=== PATIENT | male | born 1990 | race Caucasian/White ===

== ENCOUNTER 2017-05-27 17:33 | Emergency (ER) | payer SELFPAY ==
[2017-05-27] MEDS ORDERED: NORCO 5/325 MG PO ONE ×2 (17:40→18:55)
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
[2017-05-27] MEDS ORDERED: NORCO 5/325 MG ONE ×2 (17:45→18:52)
[2017-05-27 19:11] VITALS: BP 117/62; PULSE 88; O2SAT 96
--- NOTE | 2017-05-27 20:09 | XRAY ---
Indication: Pain following injury. Comparison: None 3 nonweightbearing views of the right foot demonstrates nondisplaced medial malleolar tip fracture and a cuboid accessory ossicle. No other bony, articular, or soft tissue abnormalities.
--- NOTE | 2017-05-27 20:09 | XRAY ---
Indication: Lateral pain following injury. Comparison: None 3 views of the right ankle demonstrates nondisplaced medial malleolar tip acute fracture with soft tissue swelling. Elsewhere tiny posterior heel spur and small lateral malleolar tip well-circumscribed ossification either developmental versus old injury.
== END 2017-05-27 19:05 | disposition home or self-care (01) ==
LOC: ED 17:33
PROC: 2W3QX1Z Immobilization of Right Lower Leg using Splint (ICD-10-PCS; principal; 2017-05-27)
DX: S82.891A Other fracture of right lower leg, initial encounter for closed fracture (principal); V86.95XA Unspecified occupant of 3- or 4- wheeled all-terrain vehicle (ATV) injured in nontraffic accident, initial encounter
CPT/HCPCS: 29515; 73610; 73630; 99283; A9270-GY

== ENCOUNTER 2018-04-23 06:04 | Emergency (ER) | payer OTHER ==
[2018-04-23] MEDS ORDERED: solu-MEDROL 125 MG IV ONE (06:09)
[2018-04-23] MEDS ORDERED: DUONEB 0.5-3 MG/3 ml Neb IH ONE ×2 (06:09→06:31)
[2018-04-23 06:15] VITALS: BP 124/62
[2018-04-23] MEDS ORDERED: solu-MEDROL 125 MG ONE (06:17)
--- NOTE | 2018-04-23 06:18 | ERPHSYRPT ---
- History of Present Illness Time Seen by Provider: 04/23/18 06:12 Source: patient Exam Limitations: no limitations Physician History: 27-year-old white male with history of asthma arrives with complaint of shortness of breath since last night. Patient states that he was seen yesterday [facility] secondary to the same complaint he was given a prescription for an inhaler and antibiotics but he did not fill them because he stated that he did not have any money. He states that he is short of breath wheezing he has not had any fevers no nausea no vomiting. Past medical history includes asthma depression and anger issues. Past surgical history is negative. Social history is positive for tobacco use patient denies alcohol or illicit drug use. Timing/Duration: yesterday Activities at Onset: none Severity of Dyspnea-Max: moderate Severity of Dyspnea-Current: moderate Possible Cause: occasional episodes (patient seen at [facility] for the same did not fill his prescriptions.) Modifying Factors: Improves With: nothing Associated Symptoms: constant, wheezing, No intermittent, No anxiety, No cough, No chest pain/discomfort, No edema, No fever, No insomnia, No loss of appetite, No lightheadedness, No weakness, No ankle swelling, No chills, No hemoptysis, No calf pain, No dizziness, No heaviness, No heart racing, No lightheadedness, No leg swelling, No muscle spasms feet, No muscle spasms hands, No painful breathing, No productive cough, No sweating, No tightness, No tingling face International travel in last 2 weeks: No Allergies/Adverse Reactions: No Known Drug Allergies Allergy (Verified 05/27/17 17:46) Home Medications: No Reportable Medications [No Reported Medications] 05/27/17 [History] Hx Tetanus, Diphtheria Vaccination/Date Given: Yes Hx Influenza Vaccination/Date Given: No Hx Pneumococcal Vaccination/Date Given: Yes - Review of Systems Constitutional: No Fever, No Chills Eyes: No Symptoms Ears, Nose, & Throat: No Symptoms Respiratory: Dyspnea, Wheezing Cardiac: No Chest Pain, No Edema, No Syncope Abdominal/Gastrointestinal: No Abdominal Pain, No Nausea, No Vomiting, No Diarrhea Genitourinary Symptoms: No Dysuria Musculoskeletal: No Back Pain, No Neck Pain Skin: No Rash Neurological: No Dizziness, No Focal Weakness, No Sensory Changes Psychological: No Symptoms Endocrine: No Symptoms All Other Systems: Reviewed and Negative - Past Medical History Pertinent Past Medical History: Yes Neurological History: No Pertinent History ENT History: No Pertinent History Cardiac History: No Pertinent History Respiratory History: Asthma Endocrine Medical History: No Pertinent History Musculoskeletal History: No Pertinent History GI Medical History: No Pertinent History History: No Pertinent History Psycho-Social History: Depression Male Reproductive Disorders: No Pertinent History Other Medical History: anger issues - Past Surgical History Past Surgical History: No - Social History Smoking Status: Current some day smoker How long have you smoked: 10 YEARS Exposure to second hand smoke: Yes Drug Use: none Patient Lives Alone: No - Nursing Vital Signs Nursing Vital Signs: Initial Vital Signs Temperature 98.3 F 04/23/18 06:08 Pulse Rate 87 04/23/18 06:08 Respiratory Rate 22 04/23/18 06:08 Blood Pressure 124/62 04/23/18 06:08 O2 Sat by Pulse Oximetry 95 04/23/18 06:08 Pain Scale Pain Intensity 2 - Physical Exam General Appearance: mild distress Eye Exam: PERRL/EOMI Ears, Nose, Throat Exam: hearing grossly normal, normal ENT inspection, normal pharynx, No abnormal TM (R), No abnormal TM (L), No sinus pain/drainage, No hearing decreased, No nasal congestion, No pharyngeal erythema, No tonsillar exudate, No tonsillar swelling Neck Exam: normal inspection, non-tender, supple Respiratory Exam: airway intact, diminished breath sounds, No chest tenderness, No lungs clear, No respiratory distress, No accessory muscle use, No prolonged expirations, No crackles/rales, No rhonchi, No wheezing, No stridor, No pleural rub Cardiovascular/Chest Exam: normal heart sounds, regular rate/rhythm, normal peripheral pulses, No murmur Abdominal/Gastrointestinal Exam: soft, No tenderness, No distention, No mass Extremity Exam: non-tender, normal range of motion, normal inspection, no calf tenderness, no pedal edema Neurologic Exam: alert, oriented x 3, cooperative, fly finisher II-XII nml as tested, sensation nml, No motor deficits Skin Exam: normal color, warm, No dry SpO2 Interpretation: normal (97%) Oxygen Delivery: Room Air - Course Nursing assessment & vital signs reviewed: Yes EKG Interpreted by Me: RATE (75 bpm), NORMAL AXIS, Other (EKG, sinus arrhythmia , 75 bpm, normal axis, no acute ST or t wave changes, normal EKG) - Radiology Exams Chest X-ray Interpretation: Interpreted by me, Negative (no acute disease process) Ordered Tests: Active Orders 24 hr Category Date Time Status EKG-ER Only STAT Care 04/23/18 06:09 Active IV Insertion STAT Care 04/23/18 06:09 Active Pulse Oximetry (ED) STAT Care 04/23/18 06:11 Active CHEST 1 VIEW (PORTABLE) Stat Exams 04/23/18 06:20 Taken Respiratory MDI STAT RT 04/23/18 06:40 Active Respiratory Therapy Assessment DAILY RT 04/23/18 06:37 Active Medication Summary Generic Name Dose Route Start Last Admin Trade Name Freq PRN Reason Stop Dose Admin Albuterol Sulfate 2 puff 04/23/18 06:39 Proventil Common Canister IH 05/23/18 06:38 Q4-6HPRN PRN shortness of breath, wheezing Discontinued Medications Generic Name Dose Route Start Last Admin Trade Name Freq PRN Reason Stop Dose Admin Albuterol/Ipratropium 3 ml 04/23/18 06:09 04/23/18 06:36 Duoneb 0.5-3 Mg/3 Ml Neb IH 04/23/18 06:10 3 ml STAT ONE Administration Albuterol/Ipratropium Confirm 04/23/18 06:31 Duoneb 0.5-3 Mg/3 Ml Neb Administered 04/23/18 06:32 Dose 3 ml IH .STK-MED ONE Methylprednisolone Sodium Succinate 125 mg 04/23/18 06:09 04/23/18 06:29 Solu-Medrol 125 Mg IV 04/23/18 06:10 125 mg STAT ONE Administration Methylprednisolone Sodium Succinate Confirm 04/23/18 06:17 Solu-Medrol 125 Mg Administered 04/23/18 06:18 Dose 125 mg .ROUTE .STK-MED ONE - Progress Progress: improved Air Movement: fair Progress Note: 04/23/18 06:16 This is a 27-year-old white male with history of asthma, depression, anger issues who smokes. He arrives with complaint of shortness of breath since yesterday he states he's been wheezing. He apparently was seen yesterday at [facility] he was given a prescription for antibiotics and inhaler however he states he did not fill these. On arrival patient does have some decreased breath sounds. I have ordered an EKG, DuoNeb treatment, and Solu-Medrol 125 mg IV. I've asked the nurses to obtain records from the patient's last ER visit at [place] yesterday. Patient does appear to be stable pulse ox is 97% on room air 04/23/18 06:41 Awaiting a chest x-ray on this patient he is given an albuterol treatment and Solu-Medrol. Patient apparently cannot afford an inhaler I've asked respiratory to provide him one to be used every 2 puffs every 4-6 hours as needed. Patient was given a prescription for Keflex at [place] yesterday I will find out if he kept that prescription, 04/23/18 06:47 Patient states his Keflex was called out to [facility] in [place]. He states he believes he will be able to pick this up I will also give him a prescription for tapering dose of prednisone. I have told the patient he will need to pay for these medications. I have asked respiratory/pharmacy to provide the patient with an albuterol inhaler. Patient is advised to quit smoking. - Departure Time of Disposition: 06:48 Departure Disposition: Home Clinical Impression: Shortness of breath Asthma with exacerbation Qualifiers: Asthma severity: moderate Asthma persistence: unspecified Qualified Code(s): J45.901 - Unspecified asthma with (acute) exacerbation Condition: Fair Critical Care Time: No Referrals: DOCTOR,NO FAMILY [Primary Care Provider] - Additional Instructions: Return home. Plenty of fluids. Albuterol inhaler 2 puffs every 4-6 hours as needed for wheezing or shortness of breath. Fill your prescription for Keflex which he received yesterday. Tapering dose of penicillin as prescribed. Stop smoking. Follow-up with your family doctor.(list) Return for acute distress or for severe symptoms.
[2018-04-23 06:38] VITALS: PULSE 71; O2SAT 95
[2018-04-23] MEDS ORDERED: PROVENTIL COMMON CANISTER IH PRN (06:39)
[2018-04-23] MEDS ORDERED: Ventolin Hfa MDI IH ONE (06:48)
--- NOTE | 2018-04-23 09:12 | XRAY ---
Indication: Short of breath. Asthma. Comparison: None Portable chest demonstrates normal heart and lungs. 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
== END 2018-04-23 06:58 | disposition home or self-care (01) ==
LOC: ED 06:04
DX: R06.02 Shortness of breath (principal); J45.909 Unspecified asthma, uncomplicated; F32.9 Major depressive disorder, single episode, unspecified; Z79.4 Long term (current) use of insulin
CPT/HCPCS: 36000; 71045; 93005; 94640; 96374; 99284; J2930; A9270-GY

== ENCOUNTER 2020-01-15 17:34 | Emergency (ER) | payer MEDICAID, OTHER ==
--- NOTE | 2020-01-15 18:04 | ERPHSYRPT ---
- History of Present Illness Source: patient Exam Limitations: no limitations Patient Subjective Stated Complaint: pt co pain to left knee for 2 days after tripping and falling down 4 stairs, landed on left knee, Triage Nursing Assessment: pt alert, resp easy has face mask in place, skin w/d/p.pain to knee, no swelling or bruising noted Physician History: 29 yo wm fell and hurt his L knee 2 days ago. Pt denies previous/other injury. Pain is 7/10 and worse w movement. Method of Injury: fell Occurred: days ago (2) Quality: constant Severity of Pain-Max: moderate Severity of Pain-Current: moderate Lower Extremities Pain: knee: left Modifying Factors: Improves With: movement Associated Symptoms: none Allergies/Adverse Reactions: No Known Drug Allergies Allergy (Verified 01/15/20 17:57) Hx Tetanus, Diphtheria Vaccination/Date Given: Yes Hx Influenza Vaccination/Date Given: No Hx Pneumococcal Vaccination/Date Given: No Immunizations Up to Date: Yes Travel Risk - International Travel Have you traveled outside of the country in past 3 weeks: No - Coronavirus Screening Are you exhibiting any of the following symptoms?: No Close contact with a COVID-19 positive Pt in past 14-21 Days: No - Review of Systems Constitutional: No Symptoms Eyes: No Symptoms Ears, Nose, & Throat: No Symptoms Respiratory: No Symptoms Cardiac: No Symptoms Abdominal/Gastrointestinal: No Symptoms Genitourinary Symptoms: No Symptoms Skin: No Symptoms Neurological: No Symptoms Psychological: No Symptoms Endocrine: No Symptoms Hematologic/Lymphatic: No Symptoms Immunological/Allergic: No Symptoms - Past Medical History Pertinent Past Medical History: Yes Neurological History: No Pertinent History ENT History: No Pertinent History Cardiac History: No Pertinent History Respiratory History: Asthma Endocrine Medical History: No Pertinent History Musculoskeletal History: No Pertinent History GI Medical History: No Pertinent History History: No Pertinent History Psycho-Social History: Depression Male Reproductive Disorders: No Pertinent History Other Medical History: anger issues - Past Surgical History Past Surgical History: No - Social History Smoking Status: Current every day smoker How long have you smoked: 10 YEARS Exposure to second hand smoke: Yes Drug Use: none Patient Lives Alone: No Significant Family History: no pertinent family hx - Nursing Vital Signs Nursing Vital Signs: Initial Vital Signs Temperature 98.4 F 01/15/20 17:51 Pulse Rate 58 L 01/15/20 17:51 Respiratory Rate 18 01/15/20 17:51 Blood Pressure 119/61 01/15/20 17:51 O2 Sat by Pulse Oximetry 96 01/15/20 17:51 Pain Scale Pain Intensity 7 - Physical Exam General Appearance: no apparent distress Eyes, Ears, Nose, Throat Exam: normal ENT inspection Neck Exam: normal inspection, non-tender, full range of motion Cardiovascular/Respiratory Exam: chest non-tender, normal breath sounds, regular rate/rhythm, heart sounds normal, no respiratory distress Gastrointestinal/Abdominal Exam: non-tender, soft, No tenderness Back Exam: normal inspection, normal range of motion, No vertebral tenderness Hips Exam: bilateral: non-tender, normal inspection, normal range of motion, no evidence of injury Legs Exam: bilateral leg: non-tender, normal inspection, normal range of motion, no evidence of injury Knees Exam: left knee: other (L knee w mild edema and pre-patellar ttp/no instability/good pedal pulse, distal sensation, and capillary return) Ankle Exam: bilateral ankle: non-tender, normal inspection, normal range of motion, no evidence of injury Foot Exam: bilateral foot: non-tender, normal inspection, normal range of motion, no evidence of injury Neuro/Tendon Exam: normal sensation, normal motor functions, normal tendon functions, responds to pain, no evidence tendon injury Mental Status Exam: alert, oriented x 3, cooperative Skin Exam: normal color, warm, dry SpO2 Interpretation: normal SpO2: 96 O2 Delivery: Room Air - Course Nursing assessment & vital signs reviewed: Yes - Radiology Exams Knee X-ray Interpretation: Interpreted by me (L knee wo fx) Ordered Tests: Active Orders 24 hr Category Date Time Status Armando Bandage Application -[facility] STAT Care 01/15/20 18:30 Completed KNEE (3 VIEWS) Stat Exams 01/15/20 18:17 Taken - Progress Progress: unchanged Progress Note: 01/15/20 18:04 Pt refused pain meds after exam 01/15/20 18:30 Armando wrap per nurse/NVI Pt request work excuse 01/15/20 18:34 Pt refused all pain meds during stay Counseled pt/family regarding: diagnosis, rad results - Departure Departure Disposition: Home Clinical Impression: Contusion of knee, left Condition: Stable Critical Care Time: No Referrals: DOCTOR,NO FAMILY [Primary Care Provider] - Instructions: Knee Sprain (DC), Knee Pain (DC) Additional Instructions: Armando wrap for 3-4 days Lodine as needed for pain Follow up with family md for continued pain Activity as tolerated Forms: Work/School Release Form Prescriptions: Etodolac 400 mg [Lodine 400 mg] 400 mg PO BIDPRN PRN #10 tablet PRN Reason: Pain
[2020-01-15 19:01] VITALS: BP 119/63; PULSE 74
[2020-01-15 19:08] VITALS: O2SAT 96
--- NOTE | 2020-01-15 19:36 | XRAY ---
Exam: 3 views the right knee from 01/15/2020. Comparison: None. Indication: 29-year-old male fell going down steps 2 days ago, landed on knee, anterior and lateral left knee pain since then. Findings: AP, oblique, and lateral radiographs of the left knee were obtained. I see no acute left knee fracture, dislocation, or joint effusion. Both the patellofemoral joint as well as the femoral tibial joint appear well-maintained and display smooth articular margins. No intra-articular or periarticular soft tissue calcifications are seen. No other focal bone lesion is evident. No radiopaque soft tissue foreign body is seen. Impression: 1. No acute left knee fracture, dislocation, or joint effusion is seen.
== END 2020-01-15 19:02 | disposition home or self-care (01) ==
LOC: ED 17:34
DX: S80.01XA Contusion of right knee, initial encounter (principal); W17.89XA Other fall from one level to another, initial encounter; Y93.89 Activity, other specified; Y92.89 Other specified places as the place of occurrence of the external cause
CPT/HCPCS: 73562; 99283

== ENCOUNTER 2020-10-17 20:16 | Emergency (ER) | payer MEDICAID, OTHER ==
--- NOTE | 2020-10-17 20:25 | ERPHSYRPT ---
- History of Present Illness Time Seen by Provider: 10/17/20 20:21 Source: patient Exam Limitations: no limitations Physician History: Patient is a 30-year-old white male who presents with a complaint of chest pain and shortness of breath. This is actually been going on for 2 months as far as the chest pain goes the shortness of breath been getting worse he has been dizzy he has had some fever on and off he has a history of asthma. His cardiac risk factors are positive family history positive for smoking positive for hypertension negative for cholesterol abnormalities or diabetes. Timing/Duration: week(s) (8) Severity: moderate Modifying Factors: Improves With: movement Associated Symptoms: shortness of breath, cough, chest pain, fever Allergies/Adverse Reactions: No Known Drug Allergies Allergy (Verified 10/17/20 20:19) Hx Tetanus, Diphtheria Vaccination/Date Given: Yes Hx Influenza Vaccination/Date Given: No Hx Pneumococcal Vaccination/Date Given: No - Review of Systems Constitutional: Fever, No Chills Eyes: No Symptoms Ears, Nose, & Throat: No Symptoms Respiratory: Cough, Dyspnea, Wheezing Cardiac: Chest Pain, No Edema, No Syncope Abdominal/Gastrointestinal: No Abdominal Pain, No Nausea, No Vomiting, No Diarrhea Genitourinary Symptoms: No Dysuria Musculoskeletal: No Back Pain, No Neck Pain Skin: No Rash Neurological: No Dizziness, No Focal Weakness, No Sensory Changes Psychological: No Symptoms Endocrine: No Symptoms All Other Systems: Reviewed and Negative - Past Medical History Pertinent Past Medical History: Yes Neurological History: No Pertinent History ENT History: No Pertinent History Cardiac History: No Pertinent History Respiratory History: Asthma Endocrine Medical History: No Pertinent History Musculoskeletal History: No Pertinent History GI Medical History: No Pertinent History History: No Pertinent History Psycho-Social History: Depression Male Reproductive Disorders: No Pertinent History Other Medical History: anger issues - Past Surgical History Past Surgical History: No - Social History Smoking Status: Current every day smoker How long have you smoked: 10 YEARS Exposure to second hand smoke: Yes Drug Use: none Patient Lives Alone: No Significant Family History: no pertinent family hx - Nursing Vital Signs Nursing Vital Signs: Initial Vital Signs Temperature 98.5 F 10/17/20 20:21 Pulse Rate 108 H 10/17/20 20:21 Respiratory Rate 22 10/17/20 20:21 Blood Pressure 153/88 10/17/20 20:21 O2 Sat by Pulse Oximetry 95 10/17/20 20:21 Pain Scale Pain Intensity 6 - Physical Exam General Appearance: mild distress, alert Eye Exam: PERRL/EOMI, eyes nml inspection Ears, Nose, Throat Exam: normal ENT inspection, TMs normal, pharynx normal, moist mucous membranes Neck Exam: normal inspection, non-tender, supple, full range of motion Respiratory Exam: lungs clear, crackles/rales, rhonchi, wheezing, No respiratory distress Cardiovascular Exam: regular rate/rhythm, normal heart sounds, normal peripheral pulses Gastrointestinal/Abdomen Exam: soft, normal bowel sounds, No tenderness, No mass Back Exam: normal inspection, normal range of motion, No CVA tenderness, No vertebral tenderness Extremity Exam: normal inspection, normal range of motion, pelvis stable Neurologic Exam: alert, oriented x 3, cooperative, normal mood/affect, nml cerebellar function, nml station & gait, sensation nml, No motor deficits Skin Exam: normal color, warm, dry, No rash Lymphatic Exam: No adenopathy SpO2 Interpretation: normal O2 Delivery: Room Air - Course Nursing assessment & vital signs reviewed: Yes Ordered Tests: Active Orders 24 hr Category Date Time Status Orthopedic Tech STAT Care 10/17/20 20:33 Active EKG-ER Only STAT Care 10/17/20 20:33 Active IV Insertion STAT Care 10/17/20 20:33 Active CHEST 1 VIEW (PORTABLE) Stat Exams 10/17/20 20:33 Taken CBC W DIFF Stat Lab 10/17/20 19:50 Completed CMP Stat Lab 10/17/20 19:50 Completed D-DIMER QUANTITATIVE Stat Lab 10/17/20 19:50 Completed NT PRO BNP Stat Lab 10/17/20 19:50 Completed PROTIME WITH INR Stat Lab 10/17/20 19:50 Completed TROPONIN Q3H Lab 10/17/20 19:50 Completed TROPONIN Q3H Lab 10/17/20 23:45 Ordered TROPONIN Q3H Lab 10/18/20 02:45 Ordered TROPONIN Q3H Lab 10/18/20 05:45 Ordered TROPONIN Q3H Lab 10/18/20 08:45 Ordered Respiratory Therapy Assessment DAILY RT 10/17/20 20:36 Active Medication Summary Generic Name Dose Route Start Last Admin Trade Name Freq PRN Reason Stop Dose Admin Albuterol Sulfate 2.5 mg 10/17/20 22:00 Proventil 2.5 Mg/3 Ml Neb IH 11/16/20 21:59 Q4H LUCILA Ceftriaxone Sodium/Dextrose 1 g in 50 mls @ 100 mls/hr 10/17/20 22:02 Rocephin 1 Gm-D5w 50 Ml Bag IV 10/17/20 22:31 STAT STA Discontinued Medications Generic Name Dose Route Start Last Admin Trade Name Thierry PRN Reason Stop Dose Admin Albuterol/Ipratropium 3 ml 10/17/20 20:32 10/17/20 20:42 Duoneb 0.5-3 Mg/3 Ml Neb IH 10/17/20 20:33 3 ml STAT ONE Administration Albuterol/Ipratropium Confirm 10/17/20 20:41 Duoneb 0.5-3 Mg/3 Ml Neb Administered 10/17/20 20:42 Dose 3 ml IH .STK-MED ONE Sodium Chloride 1,000 mls @ 999 mls/hr 10/17/20 20:33 10/17/20 20:42 Sodium Chloride 0.9% 1000 Ml IV 10/17/20 21:33 999 mls/hr .Q1H1M STA Administration Sodium Chloride Confirm 10/17/20 20:38 Sodium Chloride 0.9% 1000 Ml Administered 10/17/20 20:39 Dose 1,000 mls @ ud .ROUTE .STK-MED ONE Methylprednisolone Sodium Succinate 125 mg 10/17/20 20:32 10/17/20 20:43 Solu-Medrol 125 Mg IV 10/17/20 20:33 125 mg STAT ONE Administration Methylprednisolone Sodium Succinate Confirm 10/17/20 20:38 Solu-Medrol 125 Mg Administered 10/17/20 20:39 Dose 125 mg .ROUTE .STK-MED ONE Lab/Rad Data: Laboratory Result Diagrams 10/17/20 19:50 10/17/20 19:50 Laboratory Results 10/17/20 10/17/20 10/17/20 Range/Units 19:50 19:50 19:50 WBC (4.0-10.5) K/mm3 RBC (4.1-5.6) M/mm3 Hgb (12.5-18.0) gm/dl Hct (42-50) % MCV (78-100) fl MCH (26-32) pg MCHC (32-36) g/dl RDW (11.5-14.0) % Plt Count (150-450) K/mm3 MPV (7.5-11.0) fl Gran % (36.0-66.0) % Eos # (Auto) (0-0.5) Absolute Lymphs (auto) (1.0-4.6) Absolute Monos (auto) (0.0-1.3) Lymphocytes % (24.0-44.0) % Monocytes % (0.0-12.0) % Eosinophils % (0.00-5.0) % Basophils % (0.0-0.4) % Absolute Granulocytes (1.4-6.9) Basophils # (0-0.4) PT 13.5 H (8.83-12.87) SECONDS INR 1.19 (0.8-3.0) D-Dimer < 215 L (215-500) ng/mL Sodium 136 L (137-145) mmol/L Potassium 3.9 (3.5-5.1) mmol/L Chloride 101 (98-107) mmol/L Carbon Dioxide 24 (22-30) mmol/L Anion Gap 13.8 (5-15) MEQ/L BUN 14 (9-20) mg/dL Creatinine 0.92 (0.66-1.25) mg/dL Estimated GFR > 60.0 ML/MIN Glucose 97 (74-106) mg/dL Calcium 9.7 (8.4-10.2) mg/dL Total Bilirubin 0.40 (0.2-1.3) mg/dL AST 28 (17-59) U/L ALT 26 (0-50) U/L Alkaline Phosphatase 30 L (38-126) U/L Troponin I < 0.012 (0.000-0.034) ng/mL NT-Pro-B Natriuret Pep < 11.1 (0-450) pg/mL Serum Total Protein 8.3 H (6.3-8.2) g/dL Albumin 4.5 (3.5-5.0) g/dL 10/17/20 Range/Units 19:50 WBC 10.4 (4.0-10.5) K/mm3 RBC 5.30 (4.1-5.6) M/mm3 Hgb 16.4 (12.5-18.0) gm/dl Hct 48.6 (42-50) % MCV 91.7 (78-100) fl MCH 30.9 (26-32) pg MCHC 33.7 (32-36) g/dl RDW 13.0 (11.5-14.0) % Plt Count 325 (150-450) K/mm3 MPV 9.6 (7.5-11.0) fl Gran % 58.6 (36.0-66.0) % Eos # (Auto) 0.45 (0-0.5) Absolute Lymphs (auto) 2.92 (1.0-4.6) Absolute Monos (auto) 0.89 (0.0-1.3) Lymphocytes % 28.1 (24.0-44.0) % Monocytes % 8.6 (0.0-12.0) % Eosinophils % 4.3 (0.00-5.0) % Basophils % 0.4 (0.0-0.4) % Absolute Granulocytes 6.09 (1.4-6.9) Basophils # 0.04 (0-0.4) PT (8.83-12.87) SECONDS INR (0.8-3.0) D-Dimer (215-500) ng/mL Sodium (137-145) mmol/L Potassium (3.5-5.1) mmol/L Chloride (98-107) mmol/L Carbon Dioxide (22-30) mmol/L Anion Gap (5-15) MEQ/L BUN (9-20) mg/dL Creatinine (0.66-1.25) mg/dL Estimated GFR ML/MIN Glucose (74-106) mg/dL Calcium (8.4-10.2) mg/dL Total Bilirubin (0.2-1.3) mg/dL AST (17-59) U/L ALT (0-50) U/L Alkaline Phosphatase (38-126) U/L Troponin I (0.000-0.034) ng/mL NT-Pro-B Natriuret Pep (0-450) pg/mL Serum Total Protein (6.3-8.2) g/dL Albumin (3.5-5.0) g/dL - Progress Progress: improved - Departure Departure Disposition: Home Clinical Impression: Asthma with exacerbation Condition: Stable Critical Care Time: No Referrals: DOCTOR,NO FAMILY [Primary Care Provider] - Instructions: Asthma, Adult (DC) Forms: Work/School Release Form Prescriptions: Prednisone 10 mg [Deltasone 10 mg] 10 mg PO TID 5 Days #15 tablet Cephalexin Mh 500 mg [Keflex 500 mg] 500 mg PO TID #21 capsule Albuterol 2.5 mg/3 ml Neb [Proventil 2.5 mg/3 ml Neb] 2.5 mg IH Q6H 13 Days #50 neb Albuterol 8 gm Mdi Hfa [Ventolin Hfa MDI] 8 gm IH Q4H #1 [email or web address]
[2020-10-17] MEDS ORDERED: DUONEB 0.5-3 MG/3 ml Neb IH ONE ×2 (20:32→20:41)
[2020-10-17] MEDS ORDERED: solu-MEDROL 125 MG IV ONE (20:32)
[2020-10-17] MEDS ORDERED: Sodium Chloride 0.9% 1000 ML 1,000 ML IV STA (20:33)
[2020-10-17] MEDS ORDERED: Sodium Chloride 0.9% 1000 ML 1,000 ML ONE (20:38)
[2020-10-17] MEDS ORDERED: solu-MEDROL 125 MG ONE (20:38)
[2020-10-17 21:11] LABS: Absolute Neutrophil Ct (ANC) 6.09 (1.4-6.9); BASOPHIL % 0.4 % (0.0-0.4); Basophil (Absolute #) 0.04 (0-0.4); Eosinophil % 4.3 % (0.00-5.0); Eosinophil (Absolute #) 0.45 (0-0.5); Hematocrit 48.6 % (42-50); Hemoglobin 16.4 gm/dl (12.5-18.0); Lymphocyte (Absolute #) 2.92 (1.0-4.6); Lymphocytes % 28.1 % (24.0-44.0); Mean Cell Volume 91.7 fl (78-100); Mean Corpuscular Hemoglobin 30.9 pg (26-32); Mean Corpuscular Hgb Concent. 33.7 g/dl (32-36); Mean Platelet Volume 9.6 fl (7.5-11.0); Monocyte (Absolute #) 0.89 (0.0-1.3); Monocytes % 8.6 % (0.0-12.0); Neutrophil % 58.6 % (36.0-66.0); Platelet Count 325 K/mm3 (150-450); White Blood Count 10.4 K/mm3 (4.0-10.5)
[2020-10-17 21:28] LABS: INR 1.19 (0.8-3.0); PROTIME 13.5 SECONDS (8.83-12.87)
[2020-10-17 21:30] LABS: ALBUMIN 4.5 g/dL (3.5-5.0); ALKALINE PHOSPHATASE 30 U/L (38-126); ANION GAP 13.8 MEQ/L (5-15); BLOOD UREA NITROGEN 14 mg/dL (9-20); CHLORIDE 101 mmol/L (98-107); Calcium 9.7 mg/dL (8.4-10.2); Carbon Dioxide 24 mmol/L (22-30); Creatinine 1 0.92 mg/dL (0.66-1.25); EST GLOMERULAR FILTRATION RATE > 60.0 ML/MIN; Glucose 97 mg/dL (74-106); NT PRO BNP < 11.1 pg/mL (0-450); Potassium 3.9 mmol/L (3.5-5.1); SGOT/AST 28 U/L (17-59); SGPT/ALT 26 U/L (0-50); SODIUM 136 mmol/L (137-145); Total Protein 8.3 g/dL (6.3-8.2)
[2020-10-17 21:46] LABS: D-DIMER QUANTITATIVE < 215 ng/mL (215-500)
[2020-10-17] MEDS ORDERED: ROCEPHIN 1 Gm-D5w 50 ml Bag** 1 G/50 ML IVPB IV STA (22:02)
[2020-10-17] MEDS ORDERED: ROCEPHIN 1 Gm-D5w 50 ml Bag** 1 G/50 ML IVPB IV ONE (22:05)
[2020-10-17 22:16] VITALS: BP 136/80; PULSE 88
[2020-10-17] MEDS ORDERED: PROVENTIL 2.5 MG/3 ML NEB IH ONE (22:24)
[2020-10-17] MEDS: PROVENTIL 2.5 MG/3 ML NEB IH SCH (22:26)
[2020-10-17 22:44] VITALS: O2SAT 94
--- NOTE | 2020-10-18 20:55 | XRAY ---
Exam: AP upright portable chest film from 10/17/2020. Comparison: AP upright portable chest film from 04/23/2018. Indication: Shortness of breath. Findings: The transverse heart size appears within normal limits. The grzegorz and mediastinal structures appear intact. The lungs are adequately inflated. No air space infiltrates, vascular congestion, pneumothorax, or pleural effusion is seen. I again see an old fracture deformity of the posterior medial aspect of the left third rib. 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 This is unchanged. No acute osseous process is seen. Impression: 1. No acute cardiopulmonary process is seen, no change from 04/23/2018.
== END 2020-10-17 22:45 | disposition home or self-care (01) ==
LOC: ED 20:16
DX: J45.909 Unspecified asthma, uncomplicated (principal)
CPT/HCPCS: 36000; 36415; 71045; 80053; 83880; 84484; 85025; 85379; 85610; 93005; 93041; 94640; 96365; 96374; 99284; J0696; J2930; J7609; A9270-GY

== ENCOUNTER 2021-01-02 10:45 | Emergency (ER) | payer MEDICAID ==
[2021-01-02] MEDS ORDERED: solu-MEDROL 125 MG, Sterile H2O 10 ml 2 ML IV ONE ×2 (11:08)
[2021-01-02] MEDS ORDERED: DUONEB 0.5-3 MG/3 ml Neb IH ONE ×2 (11:08→11:19)
[2021-01-02 11:13] VITALS: O2SAT 98
--- NOTE | 2021-01-02 11:13 | ERPHSYRPT ---
- History of Present Illness Time Seen by Provider: 01/02/21 10:55 Source: patient Exam Limitations: no limitations Patient Subjective Stated Complaint: pt here for sob for 2 days now, no fever, cough Triage Nursing Assessment: pt alert, walked in, resp easy, face mask in place,has cough. Physician History: 30 years old male with history of asthma, tobacco abuse, out of his inhaler for 1 week presented to the ER with increasing wheezing with shortness of breath for 2 days. More with activity and better with resting. Feeling of tightness in the chest. Denies any cough fever or chills. No chest pain. No palpitations. Symptoms are similar to last episodes whenever he has a asthma flareup. Timing/Duration: day(s) (2), gradual onset, worse Activities at Onset: activity Severity of Dyspnea-Max: moderate Severity of Dyspnea-Current: moderate Possible Cause: occasional episodes Modifying Factors: Improves With: albuterol nebulizer Associated Symptoms: wheezing, tightness, No chest pain/discomfort, No loss of appetite, No heart racing, No painful breathing, No productive cough, No sweating Allergies/Adverse Reactions: No Known Drug Allergies Allergy (Verified 01/02/21 10:52) Hx Tetanus, Diphtheria Vaccination/Date Given: Yes Hx Influenza Vaccination/Date Given: No Hx Pneumococcal Vaccination/Date Given: No Immunizations Up to Date: Yes Travel Risk - International Travel Have you traveled outside of the country in past 3 weeks: No - Coronavirus Screening Are you exhibiting any of the following symptoms?: Yes Symptoms: Cough: New Onset, Shortness of Breath Close contact with a COVID-19 positive Pt in past 14-21 Days: No - Vaccine Status Have you recieved a Covid-19 vaccination: No - Review of Systems Constitutional: No Symptoms Eyes: No Symptoms Ears, Nose, & Throat: No Symptoms Respiratory: Wheezing Cardiac: No Symptoms Abdominal/Gastrointestinal: No Symptoms Genitourinary Symptoms: No Symptoms Musculoskeletal: No Symptoms Skin: No Symptoms Neurological: No Symptoms Psychological: No Symptoms Endocrine: No Symptoms Hematologic/Lymphatic: No Symptoms Immunological/Allergic: No Symptoms - Past Medical History Pertinent Past Medical History: Yes Neurological History: No Pertinent History ENT History: No Pertinent History Cardiac History: No Pertinent History Respiratory History: Asthma, COPD Endocrine Medical History: No Pertinent History Musculoskeletal History: No Pertinent History GI Medical History: No Pertinent History History: No Pertinent History Psycho-Social History: Depression Male Reproductive Disorders: No Pertinent History Other Medical History: anger issues - Past Surgical History Past Surgical History: No Neuro Surgical History: No Pertinent History Cardiac: No Pertinent History Respiratory: No Pertinent History Gastrointestinal: No Pertinent History Genitourinary: No Pertinent History Musculoskeletal: No Pertinent History Male Surgical History: No Pertinent History - Social History Smoking Status: Current every day smoker How long have you smoked: 10 YEARS Exposure to second hand smoke: Yes Drug Use: none Patient Lives Alone: Yes Significant Family History: no pertinent family hx - Nursing Vital Signs Nursing Vital Signs: Initial Vital Signs Pulse Rate 55 L 01/02/21 11:25 Respiratory Rate 18 01/02/21 11:25 O2 Sat by Pulse Oximetry 98 01/02/21 11:25 Pain Scale Pain Intensity 0 - Physical Exam General Appearance: no apparent distress, alert Eye Exam: PERRL/EOMI, eyes nml inspection Ears, Nose, Throat Exam: hearing grossly normal, normal pharynx, nasal congestion, pharyngeal erythema Neck Exam: non-tender, supple, full range of motion, Brudzinski Respiratory Exam: wheezing, No chest tenderness, No accessory muscle use Cardiovascular/Chest Exam: normal heart sounds, regular rate/rhythm Abdominal/Gastrointestinal Exam: soft, normal bowel sounds Extremity Exam: non-tender, normal range of motion Neurologic Exam: alert, oriented x 3, cooperative Skin Exam: normal color SpO2 Interpretation: normal SpO2: 98 O2 Delivery: Room Air Ordered Tests: Active Orders 24 hr Category Date Time Status CHEST 1 VIEW (PORTABLE) Stat Exams 01/02/21 11:23 Taken CBC W DIFF Stat Lab 01/02/21 10:53 Completed CMP Stat Lab 01/02/21 10:53 Completed Respiratory Therapy Assessment DAILY RT 01/02/21 11:36 Active Medication Summary Discontinued Medications Generic Name Dose Route Start Last Admin Trade Name Freq PRN Reason Stop Dose Admin Albuterol/Ipratropium 3 ml 01/02/21 11:08 01/02/21 11:25 Duoneb 0.5-3 Mg/3 Ml Neb IH 01/02/21 11:09 3 ml STAT ONE Administration Albuterol/Ipratropium Confirm 01/02/21 11:19 Duoneb 0.5-3 Mg/3 Ml Neb Administered 01/02/21 11:20 Dose 3 ml IH .STK-MED ONE Methylprednisolone Sodium 0 mg 01/02/21 11:08 01/02/21 11:18 Succinate 125 mg/ Sterile IV 01/02/21 11:09 125 mg Water 2 ml STAT ONE Administration Methylprednisolone Sodium Succinate Confirm 01/02/21 11:15 Solu-Medrol Administered 01/02/21 11:16 Dose 125 mg .ROUTE .STK-MED ONE Sterile Water Confirm 01/02/21 11:15 Sterile H2o 10 Ml Administered 01/02/21 11:16 Dose 10 ml IJ .STK-MED ONE Lab/Rad Data: Laboratory Result Diagrams 01/02/21 10:53 01/02/21 10:53 Laboratory Results 01/02/21 01/02/21 Range/Units 10:53 10:53 WBC 8.0 (4.0-10.5) K/mm3 RBC 5.07 (4.1-5.6) M/mm3 Hgb 15.3 (12.5-18.0) gm/dl Hct 46.2 (42-50) % MCV 91.1 (78-100) fl MCH 30.2 (26-32) pg MCHC 33.1 (32-36) g/dl RDW 13.0 (11.5-14.0) % Plt Count 312 (150-450) K/mm3 MPV 9.4 (7.5-11.0) fl Gran % 51.6 (36.0-66.0) % Eos # (Auto) 0.42 (0-0.5) Absolute Lymphs (auto) 2.61 (1.0-4.6) Absolute Monos (auto) 0.78 (0.0-1.3) Lymphocytes % 32.8 (24.0-44.0) % Monocytes % 9.8 (0.0-12.0) % Eosinophils % 5.3 H (0.00-5.0) % Basophils % 0.5 (0.0-0.4) % Absolute Granulocytes 4.10 (1.4-6.9) Basophils # 0.04 (0-0.4) Sodium 143 (137-145) mmol/L Potassium 3.7 (3.5-5.1) mmol/L Chloride 104 (98-107) mmol/L Carbon Dioxide 26 (22-30) mmol/L Anion Gap 16.7 H (5-15) MEQ/L BUN 13 (9-20) mg/dL Creatinine 0.92 (0.66-1.25) mg/dL Estimated GFR > 60.0 ML/MIN Glucose 93 (74-106) mg/dL Calcium 8.8 (8.4-10.2) mg/dL Total Bilirubin 0.20 (0.2-1.3) mg/dL AST 30 (17-59) U/L ALT 26 (0-50) U/L Alkaline Phosphatase 29 L (38-126) U/L Serum Total Protein 7.1 (6.3-8.2) g/dL Albumin 4.1 (3.5-5.0) g/dL - Progress Progress: improved Air Movement: good Progress Note: 01/02/21 12:09 Patient history and physical findings are consistent with asthma exacerbation. Given a breathing treatment and steroid. Chest x-ray did not show any acute infiltrative process. Normal white count. We will continue with albuterol and prednisone to go home. Does not seem cardiac in nature at all. Do not think n eeds any further work-up and is stable for discharge with outpatient follow-up. Discussed signs symptoms of worsening needing return to ER which he seems understanding. Blood Culture(s) Obtained: No Antibiotics given: No Counseled pt/family regarding: lab results, diagnosis, need for follow-up, rad results, smoking cessation - Departure Departure Disposition: Home Clinical Impression: Asthma with exacerbation Qualifiers: Asthma severity: moderate Asthma persistence: persistent Qualified Code(s): J45.41 - Moderate persistent asthma with (acute) exacerbation Condition: Stable Critical Care Time: No Referrals: DOCTOR,NO FAMILY [Primary Care Provider] - Instructions: Asthma, Adult (DC) Additional Instructions: Do not smoke. Use inhaler as needed. Follow-up with primary care physician for reevaluation. Return to ER for worsening chest tightness, pressure, difficulty breathing, or if develop cough/fever chills etc. Prescriptions: Prednisone 20 mg [Deltasone 20 mg] 60 mg PO DAILY 5 Days #15 tablet Albuterol 8 gm Mdi Hfa [Ventolin Hfa MDI] 8 gm IH Q4H #1 [email or web address]
[2021-01-02] MEDS ORDERED: solu-MEDROL ONE (11:15)
[2021-01-02] MEDS ORDERED: Sterile H2O 10 ml IJ ONE (11:15)
[2021-01-02 11:20] LABS: BASOPHIL % 0.5 % (0.0-0.4); Basophil (Absolute #) 0.04 (0-0.4); Eosinophil % 5.3 % (0.00-5.0); Eosinophil (Absolute #) 0.42 (0-0.5); Hematocrit 46.2 % (42-50); Hemoglobin 15.3 gm/dl (12.5-18.0); Lymphocyte (Absolute #) 2.61 (1.0-4.6); Lymphocytes % 32.8 % (24.0-44.0); Mean Cell Volume 91.1 fl (78-100); Mean Corpuscular Hemoglobin 30.2 pg (26-32); Mean Corpuscular Hgb Concent. 33.1 g/dl (32-36); Mean Platelet Volume 9.4 fl (7.5-11.0); Monocyte (Absolute #) 0.78 (0.0-1.3); Monocytes % 9.8 % (0.0-12.0); Neutrophil % 51.6 % (36.0-66.0); Platelet Count 312 K/mm3 (150-450); Red Blood Count 5.07 M/mm3 (4.1-5.6)
[2021-01-02 11:29] LABS: ALBUMIN 4.1 g/dL (3.5-5.0); ALKALINE PHOSPHATASE 29 U/L (38-126); BLOOD UREA NITROGEN 13 mg/dL (9-20); CHLORIDE 104 mmol/L (98-107); Calcium 8.8 mg/dL (8.4-10.2); Carbon Dioxide 26 mmol/L (22-30); Creatinine 1 0.92 mg/dL (0.66-1.25); EST GLOMERULAR FILTRATION RATE > 60.0 ML/MIN; Glucose 93 mg/dL (74-106); Potassium 3.7 mmol/L (3.5-5.1); SGOT/AST 30 U/L (17-59); SGPT/ALT 26 U/L (0-50); Total Protein 7.1 g/dL (6.3-8.2)
[2021-01-02 11:32] VITALS: BP 114/69; PULSE 57
[2021-01-02 11:34] LABS: SODIUM 143 mmol/L (137-145)
[2021-01-02 11:35] LABS: ANION GAP 16.7 MEQ/L (5-15)
--- NOTE | 2021-01-02 19:25 | XRAY ---
Indication: Short of breath. Cough. Comparison: February 16, 2021. Portable chest again demonstrates normal heart and lungs. Bony thorax intact again with pseudoarticulation left 5/6 ribs and old left 3 rib fracture. No new/acute findings.
== END 2021-01-02 12:21 | disposition home or self-care (01) ==
LOC: ED 10:45
DX: J45.901 Unspecified asthma with (acute) exacerbation (principal); R07.89 Other chest pain
CPT/HCPCS: 36415; 71045; 80053; 85025; 94640; 96374; 99284; J2930; A9270-GY

== ENCOUNTER 2021-05-30 08:07 | Emergency (ER) | payer SELFPAY ==
[2021-05-30 08:15] VITALS: BP 135/75
[2021-05-30] MEDS ORDERED: DELTASONE 20 MG PO ONE (08:31)
[2021-05-30] MEDS ORDERED: DUONEB 0.5-3 MG/3 ml Neb IH ONE ×2 (08:31→08:36)
[2021-05-30] MEDS ORDERED: DELTASONE 20 MG ONE (08:41)
[2021-05-30 08:48] VITALS: PULSE 83
--- NOTE | 2021-05-30 08:48 | ERPHSYRPT ---
- History of Present Illness Time Seen by Provider: 05/30/21 08:15 Source: patient Exam Limitations: no limitations Patient Subjective Stated Complaint: SOB Triage Nursing Assessment: Patient ambulated back to ED and transferred self to bed. Patient A+O X3. Patient's skin pink, warm and dry. Patient complains of increased SOB over the past few days. Patient has hx of asthma and has ran out of his albuterol neb tx. Patient also complains of productive cough with thick white sputum. Lungs clear a/p bo. Patient complains of back pain 5/10. Physician History: Patient is a 30-year-old male with a history of asthma presents to our ED for evaluation of shortness of breath and wheezing that has been ongoing for 3 days. Patient states he ran out of his inhaler. Shortness of breath is coupled with a cough productive of clear sputum. Otherwise no chest pain. No nausea or vomiting. No calf pain. No history of PE DVT. Symptoms are mild to moderate in intensity. Exertion worsens symptoms. Patient is not currently a smoker. Patient is otherwise healthy. He voices no other complaints concerns at this time. Timing/Duration: day(s) (3 days) Activities at Onset: activity Severity of Dyspnea-Max: moderate Severity of Dyspnea-Current: mild Possible Cause: occasional episodes Modifying Factors: Improves With: activity Associated Symptoms: cough, wheezing, No chest pain/discomfort, No fever, No ankle swelling, No calf pain, No heart racing, No leg swelling, No muscle spasms feet, No painful breathing, No sweating, No tightness, No tingling face, No tingling hands Allergies/Adverse Reactions: No Known Drug Allergies Allergy (Verified 05/30/21 08:09) Hx Tetanus, Diphtheria Vaccination/Date Given: Yes Hx Influenza Vaccination/Date Given: No Hx Pneumococcal Vaccination/Date Given: No Immunizations Up to Date: Yes Travel Risk - International Travel Have you traveled outside of the country in past 3 weeks: No - Coronavirus Screening Are you exhibiting any of the following symptoms?: No Close contact with a COVID-19 positive Pt in past 14-21 Days: No - Vaccine Status Have you recieved a Covid-19 vaccination: No - Review of Systems Constitutional: No Symptoms, No Fever, No Chills Eyes: No Symptoms Ears, Nose, & Throat: No Symptoms Respiratory: No Symptoms, No Cough, No Dyspnea Cardiac: No Symptoms, No Chest Pain, No Edema, No Syncope Abdominal/Gastrointestinal: No Symptoms, No Abdominal Pain, No Nausea, No Vomiting, No Diarrhea Genitourinary Symptoms: No Symptoms, No Dysuria Musculoskeletal: No Symptoms, No Back Pain, No Neck Pain Skin: No Symptoms, No Rash Neurological: No Symptoms, No Dizziness, No Focal Weakness, No Sensory Changes Psychological: No Symptoms Endocrine: No Symptoms Hematologic/Lymphatic: No Symptoms Immunological/Allergic: No Symptoms All Other Systems: Reviewed and Negative - Past Medical History Pertinent Past Medical History: Yes Neurological History: No Pertinent History ENT History: No Pertinent History Cardiac History: No Pertinent History Respiratory History: Asthma, COPD Endocrine Medical History: No Pertinent History Musculoskeletal History: No Pertinent History GI Medical History: No Pertinent History History: No Pertinent History Psycho-Social History: Depression Male Reproductive Disorders: No Pertinent History Other Medical History: anger issues - Past Surgical History Past Surgical History: No Neuro Surgical History: No Pertinent History Cardiac: No Pertinent History Respiratory: No Pertinent History Gastrointestinal: No Pertinent History Genitourinary: No Pertinent History Musculoskeletal: No Pertinent History Male Surgical History: No Pertinent History - Social History Smoking Status: Current every day smoker How long have you smoked: 10 YEARS Exposure to second hand smoke: Yes Drug Use: none Patient Lives Alone: No Significant Family History: no pertinent family hx - Nursing Vital Signs Nursing Vital Signs: Initial Vital Signs Temperature 98.1 F 05/30/21 08:09 Pulse Rate 86 05/30/21 08:09 Respiratory Rate 18 05/30/21 08:09 Blood Pressure 135/75 05/30/21 08:09 O2 Sat by Pulse Oximetry 96 05/30/21 08:09 Pain Scale Pain Intensity 5 - Physical Exam General Appearance: no apparent distress, alert Eye Exam: PERRL/EOMI Neck Exam: normal inspection, supple, full range of motion, No non-tender Respiratory Exam: wheezing, No chest tenderness, No respiratory distress Cardiovascular/Chest Exam: normal heart sounds, regular rate/rhythm Abdominal/Gastrointestinal Exam: soft, No tenderness, No distention, No mass Extremity Exam: non-tender, normal range of motion, normal inspection, no calf tenderness, no pedal edema Peripheral Pulses Exam: dorsalis-pedis (R): 2+, dorsalis-pedis (L): 2+ Neurologic Exam: alert, oriented x 3, cooperative, fresh foods clerk II-XII nml as tested, nml cerebellar function, nml station & gait, sensation nml, No motor deficits Skin Exam: normal color, warm, No dry Lymphatic Exam: No adenopathy SpO2 Interpretation: normal SpO2: 97 O2 Delivery: Room Air - Course Nursing assessment & vital signs reviewed: Yes - Radiology Exams Chest X-ray Interpretation: Teleradiologist Report (No infiltrates to suggest pneumonia or other acute cardiopulmonary disease is seen. Stable left rib findings.) Ordered Tests: Active Orders 24 hr Category Date Time Status CHEST 1 VIEW (PORTABLE) Stat Exams 05/30/21 08:32 Completed Respiratory Therapy Assessment DAILY RT 05/30/21 08:43 Active Medication Summary Discontinued Medications Generic Name Dose Route Start Last Admin Trade Name Thierry PRN Reason Stop Dose Admin Albuterol/Ipratropium 3 ml 05/30/21 08:31 05/30/21 08:42 Ipratropium/Albuterol Sulfate 3 Ml Ampul.Neb IH 05/30/21 08:32 3 ml STAT ONE Administration Albuterol/Ipratropium Confirm 05/30/21 08:36 Ipratropium/Albuterol Sulfate 3 Ml Ampul.Neb Administered 05/30/21 08:37 Dose 3 ml IH .STK-MED ONE Prednisone 60 mg 05/30/21 08:31 05/30/21 08:41 Prednisone 20 Mg Tablet PO 05/30/21 08:32 60 mg STAT ONE Administration Prednisone Confirm 05/30/21 08:41 Prednisone 20 Mg Tablet Administered 05/30/21 08:42 Dose 60 mg .ROUTE .STK-MED ONE - Progress Progress: improved Air Movement: good Progress Note: Patient reassessed. He feels well. Oxygen within normal limits with exertion. Wheezing resolved. Patient received oral prednisone in our ED. Patient also received a breathing treatment. Chest x-ray is essentially nonremarkable. No pneumonia observed. Patient now requesting discharge. Will discharge patient home. Vital stable. A prescription for prednisone and albuterol inhaler was for the patient's pharmacy. Patient agrees to follow-up with primary care doctor within 48 hours for reevaluation. Patient voices no other complaints concerns at this time. Portions of this note were created with voice recognition technology. There may be grammatical, spelling, punctuation or sound alike errors 05/30/21 09:08 Patient requesting work note. 05/30/21 09:09 Blood Culture(s) Obtained: No Antibiotics given: No Counseled pt/family regarding: diagnosis, rad results - Departure Departure Disposition: Home Clinical Impression: Asthma exacerbation, mild Condition: Stable Critical Care Time: No Instructions: Asthma, Adult (DC) Additional Instructions: Discharge/Care Plan RINKU CACERES was seen on 05/30/21 in the Emergency Room. The patient was counseled regarding Diagnosis,Lab results, Imaging studies, need for follow up and when to return to the Emergency Room. Prescriptions given: Discharge Note I have spoken with the patient and/or caregivers. I have explained the patient's condition, diagnosis and treatment plan based on the information available to me at this time. I have answered the patient's and/or caregiver's questions and addressed any concerns. The patient and/or caregivers have as good understanding of the patient's diagnosis, condition and treatment plan as can be expected at this point. The vital signs have been stable. The patient's condition is stable and appropriate for discharge from the emergency department. The patient will pursue further outpatient evaluation with the primary care physician or other designated or consulting physician as outlined in the discharge instructions. The patient and/or caregivers are agreeable to this plan of care and follow-up instructions have been explained in detail. The patient and/or caregivers have received these instruction. The patient/and or caregivers are aware that any significant change in condition or worsening of symptoms shou ld prompt an immediate return to this or the closest emergency department or call 911. Forms: Work/School Release Form Prescriptions: Prednisone 10 mg [Deltasone 10 mg] 40 mg PO DAILY 3 Days #12 tablet Albuterol 8 gm Mdi Hfa [Ventolin Hfa MDI] 8 gm IH Q4H PRN #1 gm PRN Reason: Shortness Of Breath/Wheezing
--- NOTE | 2021-05-30 09:01 | XRAY ---
Exam: AP upright portable chest film from 05/30/2021. Comparison: AP upright portable chest film from 01/02/2021. Indication: Shortness of breath. Findings: The heart size and contour are normal. The grzegorz and mediastinal structures appear intact. The lungs are well inflated. No air space infiltrates, vascular congestion, pneumothorax, or pleural fluid is seen. Respiratory tubing overlies the left upper lobe. No interstitial lung changes are seen. I again see evidence of an old healed fracture deformity of the posterior left third rib. 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 No other acute osseous process is seen. Impression: 1. No infiltrates to suggest pneumonia or other acute cardiopulmonary disease is seen. 2. Stable left rib findings, as discussed above.
[2021-05-30 09:17] VITALS: O2SAT 96
== END 2021-05-30 09:20 | disposition home or self-care (01) ==
LOC: ED 08:07
DX: J45.901 Unspecified asthma with (acute) exacerbation (principal); J44.9 Chronic obstructive pulmonary disease, unspecified; Z72.0 Tobacco use
CPT/HCPCS: 71045; 94640; 99283; A9270-GY

== ENCOUNTER 2021-12-26 22:53 | Emergency (ER) | payer OTHER ==
[2021-12-27 00:07] LABS: Absolute Neutrophil Ct (ANC) 5.84 x10^3/uL (1.4-6.9); Basophil (Absolute #) 0.07 x10^3/uL (0-0.4); Eosinophil % 5.5 % (0.00-5.0); Eosinophil (Absolute #) 0.56 x10^3/uL (0-0.5); Hematocrit 45.3 % (42-50); Lymphocytes % 27.7 % (24.0-44.0); Mean Cell Volume 90.4 fL (78-100); Mean Corpuscular Hemoglobin 29.9 pg (26-32); Mean Corpuscular Hgb Concent. 33.1 g/dL (32-36); Mean Platelet Volume 9.1 fL (7.5-11.0); Monocyte (Absolute #) 0.81 x10^3/uL (0.0-1.3); Neutrophil % 57.7 % (36.0-66.0); Platelet Count 359 x10^3/uL (150-450); Red Blood Count 5.01 x10^6/uL (4.1-5.6); Red Cell Distribution Width 12.5 % (11.5-14.0); White Blood Count 10.1 x10^3/uL (4.0-10.5)
[2021-12-27 00:21] LABS: ACETAMINOPHEN < 10 ug/ml (10-30); ALBUMIN 4.3 g/dL (3.5-5.0); ALKALINE PHOSPHATASE 34 U/L (38-126); ANION GAP 14.7 MEQ/L (5-15); BLOOD UREA NITROGEN 16 mg/dL (9-20); CHLORIDE 102 mmol/L (98-107); Calcium 9.6 mg/dL (8.4-10.2); Carbon Dioxide 26 mmol/L (22-30); Creatinine 1 1.06 mg/dL (0.66-1.25); EST GLOMERULAR FILTRATION RATE > 60.0 ML/MIN; ETHYL ALCOHOL < 10 mg/dL (0-10); Glucose 104 mg/dL (74-106); SALICYLATE < 1.0 mg/dL (2-20); SGOT/AST 24 U/L (17-59); SGPT/ALT 22 U/L (0-50); SODIUM 138 mmol/L (137-145); Total Protein 7.6 g/dL (6.3-8.2)
--- NOTE | 2021-12-27 00:26 | ERPHSYRPT ---
- History of Present Illness Time Seen by Provider: 12/26/21 22:56 Source: patient Exam Limitations: no limitations Patient Subjective Stated Complaint: Suicidal ideation that began at age 16-17. Has been inpatient two other times ([facility] and [facility]), most recently at age of 27 years. Suicidal ideation worse today after fight with girlfriend who is 9 months . Girlfriend kicked him out of his own house today. Patient stated that he has put a lot of work into his home and feels like he has lost everything now. Patient stated is past what he can cope with at this point. He stated that he cannot hurt himself because he has a 9 year old son who depend s on him. Triage Nursing Assessment: Patient alert and oriented x 3. Patient expresses that he has had suicidal ideation since age of 18, worsened today due to social stressors. 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 He was kicked out of his own house today by his 9 month girlfriend. He denies plan to harm himself. Denies access to firearms. Patient seeking outpatient type help but would prefer no inpatient help. Stated that he cannot harm/kil himself because he has a 9 year old son who depends upon him. Physician History: 31 years old male with a history of anxiety depression, off-and-on suicidal ideation presented to the ER with worsening suicidal thoughts after he had argument with his girlfriend and got kicked out of the house. Patient denies any specific plan but wants to talk to someone to be on medication to straighten up his life. Denies any homicidal ideations. Denies any alcohol or drug use. Timing/Duration: gradual onset, worse Severity of Symptoms-Max: moderate Severity of Symptoms-Current: moderate Context related to: significant other Associated Symptoms: depressed, frustrated Previous symptoms: same symptoms as today Allergies/Adverse Reactions: No Known Drug Allergies Allergy (Verified 12/26/21 22:58) Home Medications: No Reportable Medications [No Reported Medications] 12/26/21 [History] Hx Tetanus, Diphtheria Vaccination/Date Given: Yes Hx Influenza Vaccination/Date Given: No Hx Pneumococcal Vaccination/Date Given: No Immunizations Up to Date: No Travel Risk - International Travel Have you traveled outside of the country in past 3 weeks: No - Coronavirus Screening Are you exhibiting any of the following symptoms?: No Close contact with a COVID-19 positive Pt in past 14-21 Days: No - Vaccine Status Have you recieved a Covid-19 vaccination: No - Past Medical History Pertinent Past Medical History: Yes Neurological History: No Pertinent History ENT History: No Pertinent History Cardiac History: No Pertinent History Respiratory History: Asthma, COPD Endocrine Medical History: No Pertinent History Musculoskeletal History: No Pertinent History GI Medical History: No Pertinent History History: No Pertinent History Psycho-Social History: Depression Male Reproductive Disorders: No Pertinent History Other Medical History: anger issues - Past Surgical History Past Surgical History: No Neuro Surgical History: No Pertinent History Cardiac: No Pertinent History Respiratory: No Pertinent History Gastrointestinal: No Pertinent History Genitourinary: No Pertinent History Musculoskeletal: No Pertinent History Male Surgical History: No Pertinent History - Social History Smoking Status: Former smoker How long have you smoked: 15 YEARS Exposure to second hand smoke: Yes Drug Use: none Patient Lives Alone: No Significant Family History: no pertinent family hx - Review of Systems Constitutional: No Symptoms Eyes: No Symptoms Ears, Nose, & Throat: No Symptoms Respiratory: No Symptoms Cardiac: No Symptoms Abdominal/Gastrointestinal: No Symptoms Genitourinary Symptoms: No Symptoms Musculoskeletal: No Symptoms Skin: No Symptoms Neurological: No Symptoms Psychological: Depression, Suicidal Ideations Endocrine: No Symptoms Hematologic/Lymphatic: No Symptoms Immunological/Allergic: No Symptoms - Nursing Vital Signs Nursing Vital Signs: Initial Vital Signs Temperature 98 F 12/26/21 23:00 Pulse Rate 93 H 12/26/21 23:00 Respiratory Rate 18 12/26/21 23:00 O2 Sat by Pulse Oximetry 98 12/26/21 23:00 Pain Scale Pain Intensity 0 - Physical Exam General Appearance: no apparent distress, alert, anxiety Eyes, Ears, Nose, Throat Exam: normal ENT inspection Neck Exam: normal inspection, non-tender, supple, full range of motion Respiratory Exam: normal breath sounds, lungs clear Cardiovascular Exam: regular rate/rhythm, normal peripheral pulses Gastrointestinal/Abdominal Exam: soft, normal bowel sounds, No tenderness Extremities Exam: normal inspection, normal range of motion Current Suicidality: denies suicide plan Neurological Exam: alert, oriented x 3, No normal mood/affect Appearance: appropriate appearance, appropriate insight, no memory impairment Behavior/Eye Contact/Speech: alert & cooperative Thoughts/Hallucinations: normal thought pattern, no apparent hallucination Skin Exam: normal color SpO2 Interpretation: normal SpO2: 98 O2 Delivery: Room Air Ordered Tests: Active Orders 24 hr Category Date Time Status Psychiatric Consult STAT Cons 12/27/21 02:25 Active UA W/RFX CULTURE Stat Lab 12/27/21 00:32 Completed Urine Triage Profile Stat Lab 12/27/21 00:32 Completed Lab/Rad Data: Laboratory Result Diagrams 12/26/21 00:00 12/26/21 00:00 Laboratory Results 12/27/21 12/27/21 12/26/21 Range/Units 00:32 00:32 00:00 WBC (4.0-10.5) x10^3/uL RBC (4.1-5.6) x10^6/uL Hgb (12.5-18.0) g/dL Hct (42-50) % MCV (78-100) fL MCH (26-32) pg MCHC (32-36) g/dL RDW (11.5-14.0) % Plt Count (150-450) x10^3/uL MPV (7.5-11.0) fL Gran % (36.0-66.0) % Immature Gran % (Auto) (0.00-0.4) % Nucleat RBC Rel Count (0.00-0.1) % Eos # (Auto) (0-0.5) x10^3/uL Immature Gran # (Auto) (0.00-0.03) x10^3u/L Absolute Lymphs (auto) (1.0-4.6) x10^3/uL Absolute Monos (auto) (0.0-1.3) x10^3/uL Absolute Nucleated RBC (0.00-0.01) x10^3u/L Lymphocytes % (24.0-44.0) % Monocytes % (0.0-12.0) % Eosinophils % (0.00-5.0) % Basophils % (0.0-0.4) % Absolute Granulocytes (1.4-6.9) x10^3/uL Basophils # (0-0.4) x10^3/uL Sodium 138 (137-145) mmol/L Potassium 4.0 (3.5-5.1) mmol/L Chloride 102 (98-107) mmol/L Carbon Dioxide 26 (22-30) mmol/L Anion Gap 14.7 (5-15) MEQ/L BUN 16 (9-20) mg/dL Creatinine 1.06 (0.66-1.25) mg/dL Estimated GFR > 60.0 ML/MIN Glucose 104 (74-106) mg/dL Calcium 9.6 (8.4-10.2) mg/dL Total Bilirubin 0.60 (0.2-1.3) mg/dL AST 24 (17-59) U/L ALT 22 (0-50) U/L Alkaline Phosphatase 34 L (38-126) U/L Serum Total Protein 7.6 (6.3-8.2) g/dL Albumin 4.3 (3.5-5.0) g/dL Urinalys Dipstick Clnc MAIN LAB Urine Color YELLOW (YELLOW) Urine Appearance CLEAR (CLEAR) Urine pH 5.5 (5-6) Ur Specific [place] 1.025 (1.005-1.025) POC Urine Protein Conf NEGATIVE (Negative) Urine Ketones NEGATIVE (NEGATIVE) Urine Nitrite NEGATIVE (NEGATIVE) Urine Bilirubin NEGATIVE (NEGATIVE) Urine Urobilinogen 0.2 (0-1) mg/dL Urine Leukocytes NEGATIVE (NEGATIVE) Urine WBC (Auto) 0-2 (0-5) /HPF Urine RBC (Auto) 0-2 (0-2) /HPF U Epithel Cells (Auto) RARE (FEW) /HPF Urine RBC NEGATIVE (0-5) Shyam/ul Urine Mucus (Auto) SLIGHT (NEGATIVE) /HPF Ur Culture Indicated? NO Urine Glucose NEGATIVE (NEGATIVE) mg/dL Salicylates < 1.0 L (2-20) mg/dL Urine Opiates Level NEGATIVE (NEGATIVE) Ur Methadone NEGATIVE (NEGATIVE) Acetaminophen < 10 L (10-30) ug/ml Urine Barbiturates NEGATIVE (NEGATIVE) Ur Phencyclidine (PCP) NEGATIVE (NEGATIVE) Urine Amphetamine NEGATIVE (NEGATIVE) U Benzodiazepine Level NEGATIVE (NEGATIVE) Urine Cocaine NEGATIVE (NEGATIVE) Urine Marijuana (THC) NEGATIVE (NEGATIVE) Ethyl Alcohol < 10 (0-10) mg/dL 12/26/21 Range/Units 00:00 WBC 10.1 (4.0-10.5) x10^3/uL RBC 5.01 (4.1-5.6) x10^6/uL Hgb 15.0 (12.5-18.0) g/dL Hct 45.3 (42-50) % MCV 90.4 (78-100) fL MCH 29.9 (26-32) pg MCHC 33.1 (32-36) g/dL RDW 12.5 (11.5-14.0) % Plt Count 359 (150-450) x10^3/uL MPV 9.1 (7.5-11.0) fL Gran % 57.7 (36.0-66.0) % Immature Gran % (Auto) 0.4 (0.00-0.4) % Nucleat RBC Rel Count 0.0 (0.00-0.1) % Eos # (Auto) 0.56 H (0-0.5) x10^3/uL Immature Gran # (Auto) 0.04 H (0.00-0.03) x10^3u/L Absolute Lymphs (auto) 2.80 (1.0-4.6) x10^3/uL Absolute Monos (auto) 0.81 (0.0-1.3) x10^3/uL Absolute Nucleated RBC 0.00 (0.00-0.01) x10^3u/L Lymphocytes % 27.7 (24.0-44.0) % Monocytes % 8.0 (0.0-12.0) % Eosinophils % 5.5 H (0.00-5.0) % Basophils % 0.7 (0.0-0.4) % Absolute Granulocytes 5.84 (1.4-6.9) x10^3/uL Basophils # 0.07 (0-0.4) x10^3/uL Sodium (137-145) mmol/L Potassium (3.5-5.1) mmol/L Chloride (98-107) mmol/L Carbon Dioxide (22-30) mmol/L Anion Gap (5-15) MEQ/L BUN (9-20) mg/dL Creatinine (0.66-1.25) mg/dL Estimated GFR ML/MIN Glucose (74-106) mg/dL Calcium (8.4-10.2) mg/dL Total Bilirubin (0.2-1.3) mg/dL AST (17-59) U/L ALT (0-50) U/L Alkaline Phosphatase (38-126) U/L Serum Total Protein (6.3-8.2) g/dL Albumin (3.5-5.0) g/dL Urinalys Dipstick Clnc Urine Color (YELLOW) Urine Appearance (CLEAR) Urine pH (5-6) Ur Specific [place] (1.005-1.025) POC Urine Protein Conf (Negative) Urine Ketones (NEGATIVE) Urine Nitrite (NEGATIVE) Urine Bilirubin (NEGATIVE) Urine Urobilinogen (0-1) mg/dL Urine Leukocytes (NEGATIVE) Urine WBC (Auto) (0-5) /HPF Urine RBC (Auto) (0-2) /HPF U Epithel Cells (Auto) (FEW) /HPF Urine RBC (0-5) Shyam/ul Urine Mucus (Auto) (NEGATIVE) /HPF Ur Culture Indicated? Urine Glucose (NEGATIVE) mg/dL Salicylates (2-20) mg/dL Urine Opiates Level (NEGATIVE) Ur Methadone (NEGATIVE) Acetaminophen (10-30) ug/ml Urine Barbiturates (NEGATIVE) Ur Phencyclidine (PCP) (NEGATIVE) Urine Amphetamine (NEGATIVE) U Benzodiazepine Level (NEGATIVE) Urine Cocaine (NEGATIVE) Urine Marijuana (THC) (NEGATIVE) Ethyl Alcohol (0-10) mg/dL - Progress Progress: improved Progress Note: 12/27/21 03:01 jatin Counseled pt/family regarding: lab results, diagnosis, need for follow-up - Departure Departure Disposition: Home Clinical Impression: Depressive disorder Condition: Stable Critical Care Time: No Referrals: DOCTOR,NO FAMILY [Primary Care Provider] - Follow up/PCP as directed BALAJI SERRANO [ACTIVE STAFF] - Follow up/PCP as directed (Call for appointment) Instructions: Suicide Prevention, Depression, Adult ED Additional Instructions: Follow-up with primary care and [facility] for reevaluation as recommended. Call 911/return to ER if having worsening of depressive symptoms/having suicidal ideations intent/plan.
[2021-12-27 00:42] LABS: Appearance CLEAR (CLEAR); Bilirubin NEGATIVE (NEGATIVE); Epithelial Cells RARE /HPF (FEW); Glucose NEGATIVE (NEGATIVE); Ketones NEGATIVE (NEGATIVE); Mucus SLIGHT /HPF (NEGATIVE); RBC 0-2 /HPF (0-2); WBC 0-2 /HPF (0-5)
[2021-12-27 00:43] LABS: Dipstick done @ ? MAIN LAB; Nitrite NEGATIVE (NEGATIVE); Ph 5.5 (5-6); Protein,Urine Dip NEGATIVE (Negative); RBC NEGATIVE Ery/ul (0-5); Specific Gravity 1.025 (1.005-1.025); Urine Cultured Indicated? NO; Urobilinogen 0.2 mg/dL (0-1)
[2021-12-27 00:54] LABS: Amphetamine,Urine NEGATIVE (NEGATIVE); Barbiturate,Urine NEGATIVE (NEGATIVE); Benzodiazepine,Urine NEGATIVE (NEGATIVE); Cocaine,Urine NEGATIVE (NEGATIVE); Methadone,Urine NEGATIVE (NEGATIVE); Opiate,Urine NEGATIVE (NEGATIVE); PCP,Urine NEGATIVE (NEGATIVE); THC,Urine NEGATIVE (NEGATIVE)
[2021-12-27 03:03] VITALS: O2SAT 98
[2021-12-27 03:12] VITALS: BP 117/77; PULSE 78
== END 2021-12-27 03:40 | disposition home or self-care (01) ==
LOC: ED 22:53
DX: F32.A Depression, unspecified (principal); R45.851 Suicidal ideations; Z63.0 Problems in relationship with spouse or partner; Z59.89 Other problems related to housing and economic circumstances; J44.9 Chronic obstructive pulmonary disease, unspecified; Z28.310 Unvaccinated for COVID-19
CPT/HCPCS: 36415; 80053; 80307; 81015; 85025; 90791; 99284; Q3014; G0480

== ENCOUNTER 2024-04-27 11:30 | Emergency (ER) | payer OTHER ==
[2024-04-27 11:42] VITALS: TEMP 97.8
--- NOTE | 2024-04-27 11:54 | ERPHSYRPT ---
- History of Present Illness Time Seen by Provider: 04/27/24 11:49 Source: patient Exam Limitations: no limitations Patient Subjective Stated Complaint: C/O possible sting or bite to right hand with swelling. Noticed swelling yesterday, it became worse over night last nigh t. Triage Nursing Assessment: Patient ambulated back to ER without difficulties. He is alert and oriented. Right hand is red, warm, swollen. Small open area noted where patient believes he may have been bit or stung yesterday. Physician History: The patient presented with a chief complaint of a swollen hand, which began the previous day. They noticed a small bite manan on the hand, which was accompanied by swelling and redness. The patient reported that the swelling and redness had worsened overnight, extending beyond the initial area. They also noted a clear discharge from the bite manan on the first day. The patient denied any knowledge of being stung or bitten, and reported waking up with the symptoms. They also complained of itching in the affected area. The patient denied any known allergies to antibiotics. The swelling and redness had extended to the underside of the hand by the second day, which was not present initially. The patient reported that the symptoms significantly worsened after waking up on the second day. Timing/Duration: yesterday Quality: itchy Severity: moderate Location: hands (right) Possible Causes: other (unknown bite/sting) Associated Symptoms: change in skin texture, edema, No difficulty breathing, No fever Allergies/Adverse Reactions: No Known Drug Allergies Allergy (Verified 04/27/24 11:35) Hx Tetanus, Diphtheria Vaccination/Date Given: Yes Hx Influenza Vaccination/Date Given: No Hx Pneumococcal Vaccination/Date Given: No Immunizations Up to Date: Yes Travel Risk - International Travel Have you traveled outside of the country in past 3 weeks: No - Emerging Infectious Disease Are you exhibiting symptoms associated with any current EIDs: No - Review of Systems All Other Systems: Reviewed and Negative - Past Medical History Pertinent Past Medical History: Yes Neurological History: No Pertinent History ENT History: No Pertinent History Cardiac History: No Pertinent History Respiratory History: Asthma Endocrine Medical History: No Pertinent History Musculoskeletal History: No Pertinent History GI Medical History: No Pertinent History History: No Pertinent History Psycho-Social History: Depression Male Reproductive Disorders: No Pertinent History Other Medical History: anger issues - Past Surgical History Past Surgical History: No Neuro Surgical History: No Pertinent History Cardiac: No Pertinent History Respiratory: No Pertinent History Gastrointestinal: No Pertinent History Genitourinary: No Pertinent History Musculoskeletal: No Pertinent History Male Surgical History: No Pertinent History Significant Family History: no pertinent family hx - Social History Smoking Status: Never smoker How long have you smoked: 15 YEARS Exposure to second hand smoke: Yes Drug Use: none Patient Lives Alone: No - Social Determinants of Health Will the patient participate in the screening: Yes Do you worry about a steady place to live?: No Do you have any problems with any of the following?: No known problems In the past 12 months,have you had to go without utilities?: No Transportation Issues: No Has anyone in your support network made you feel unsafe?: No Have you or anyone in your house had to go without enough: No - Nursing Vital Signs Nursing Vital Signs: Initial Vital Signs Temperature 97.8 F 04/27/24 11:35 Pulse Rate 73 04/27/24 11:35 Respiratory Rate 18 04/27/24 11:35 Blood Pressure 124/60 04/27/24 11:35 O2 Sat by Pulse Oximetry 97 04/27/24 11:35 Pain Scale Pain Intensity 2 - Physical Exam General Appearance: no apparent distress Respiratory Exam: normal breath sounds, airway intact, No respiratory distress Cardiovascular Exam: regular rate/rhythm, capillary refill <2 sec Skin Exam: other (right hand dorsal swelling, erythema, clear drainage) SpO2 Interpretation: normal SpO2: 97 O2 Delivery: Room Air - Course Nursing assessment & vital signs reviewed: Yes - Progress Progress: unchanged Progress Note: Cellulitis Swelling and redness of the hand with clear discharge, likely secondary to an insect bite. The redness and swelling have worsened over the past day. -Start antibiotics and steroids. -Advise to take Benadryl for itching. -Return to clinic if symptoms worsen. -Follow up with primary care provider at the end of the week. Counseled pt/family regarding: diagnosis, need for follow-up Medical Desision Making - Diagnostic Testing Diagnostic test were ordered, analyzed, and reviewed by me: No - Risk of complications The pt has a mod risk of morbidity or mortality based on: Need for prescription drug management - Departure Departure Disposition: Home Clinical Impression: Bite, Cellulitis, Swelling of right hand Condition: Good Critical Care Time: No Referrals: DOCTOR,NO FAMILY [Primary Care Provider] - Follow up/PCP as directed Instructions: Cellulitis (Skin Infection), Adult ED Prescriptions: Cephalexin Mh 500 mg [Keflex 500 mg] 500 mg PO TID 7 Days #21 cap predniSONE [Prednisone] 50 mg PO DAILY 4 Days #4 tablet
[2024-04-27] MEDS ORDERED: DELTASONE 20 MG ONE (11:56)
[2024-04-27] MEDS ORDERED: KEFLEX 500 MG ONE (11:56)
[2024-04-27] MEDS: DELTASONE 20 MG PO ONE (11:57)
[2024-04-27] MEDS: KEFLEX 500 MG PO ONE (11:57)
[2024-04-27 12:01] VITALS: BP 131/77; PULSE 71; RESP 17; O2SAT 98
== END 2024-04-27 12:05 | disposition home or self-care (01) ==
LOC: ED 11:30
DX: S60.561A Insect bite (nonvenomous) of right hand, initial encounter (principal); L03.113 Cellulitis of right upper limb; M79.89 Other specified soft tissue disorders; Z79.52 Long term (current) use of systemic steroids; Z79.899 Other long term (current) drug therapy
CPT/HCPCS: 99282; 99283; A9270-GY